=== PATIENT | male | born 2000 | race Hispanic/Latino ===

== ENCOUNTER 2025-02-25 12:07 | Emergency (ER) | payer OTHER, SELFPAY ==
[2025-02-25] VITALS (23 sets, daily range): BP systolic 102–140; BP diastolic 71–97; PULSE 71–102; RESP 14–29; TEMP 36.4; O2SAT 90–100
--- NOTE | ~2025-02-25 | XR_ITS ---
HISTORY: RT SHOULDER PAIN AFTER JUMPING IN POOL COMPARISON: None TECHNIQUE: 2 views of the right shoulder were performed FINDINGS: Medial and inferior dislocation of the humeral head in relation to the glenoid fossa consistent with an anterior shoulder dislocation. The visualized portion of the adjacent right lung is clear. IMPRESSION: Anterior shoulder dislocation, as detailed above. Reviewed, dictated and finalized at location A.
--- NOTE | ~2025-02-25 | XR_ITS ---
HISTORY: shoulder relocation COMPARISON: Previous examination performed less than one hour earlier TECHNIQUE: 2 views of the right shoulder were performed FINDINGS: No acute fracture. The glenohumeral and acromioclavicular joint space is maintained The visualized portion of the adjacent right lung is clear. The humeral head is now well seated within the glenoid fossa. IMPRESSION: Adequate alignment post reduction, as detailed above. Reviewed, dictated and finalized at location A.
[2025-02-25] MEDS: HYDROmorphone HCL INJ (*CRX) 2 MG/ML VIAL 1 MG IV PUSH ×2 (12:26→12:46)
--- NOTE | 2025-02-25 13:45 | ED.GENADULT ---
HPI - General Adult General Chief complaint: Extremity Injury, Upper Stated complaint: R shoulder injury Time Seen by Provider: 02/25/25 12:29 History of Present Illness HPI narrative: 24-year-old male presents emergency department for evaluation for a right shoulder dislocation. Patient does have a prior history of a right shoulder dislocation. Patient states he last did this approximately 2 years ago. Patient was jumping into a pool and dislocated his shoulder today just prior to arrival. Patient denies striking his head denies loss conscious. Patient denies any neck or back pain. Patient denies any numbness or weakness of the right hand but does have pain on the right shoulder. Related Data Allergies Allergy/AdvReac Type Severity Reaction Status Date / Time No Known Allergies Allergy Verified 02/25/25 12:13 Review of Systems Review of Systems: All systems reviewed & are unremarkable except as noted in HPI and below Exam Narrative: APPEARANCE: Well appearing, no pain, no distress, well-nourished. HEAD: normocephalic, atraumatic. EYES: PERRLA/EOMI, conjunctivae clear. NOSE: Normal no drainage EARS:TMS clear with good light reflex. THROAT: Pharynx clear, no exudate. NECK: Supple. No adenopathy, no masses. RESPIRATORY: Airway patent, respirations nonlabored. Clear to auscultation bilaterally, no rales, rhonchi, wheezing. CARDIOVASCULAR: Regular rate and rhythm without murmurs rubs or gallops. ABDOMINAL: Soft, nontender, nondistended, normal bowel sounds MUSCULOSKELETAL: Right shoulder dislocation, neurovascularly intact NEURO: Alert. Cranial nerves II through XII intact. Good gait. Good coordination SKIN: Warm, dry. Normal Color Course Vital Signs Vital signs: Vital Signs Temperature 97.6 F 02/25/25 12:11 Pulse Rate 87 02/25/25 12:11 Respiratory Rate 20 02/25/25 12:11 Blood Pressure 131/72 02/25/25 12:11 Pulse Oximetry 100 02/25/25 12:11 Oxygen Delivery Room Air 02/25/25 12:11 Temperature 97.6 F 02/25/25 12:11 Pulse Rate 88 02/25/25 14:31 Respiratory Rate 14 02/25/25 14:31 Blood Pressure 124/74 02/25/25 14:31 Pulse Oximetry 100 02/25/25 14:31 Oxygen Delivery Room Air 02/25/25 12:11 Procedures Orthopedic Joint Reduction Joint #1: Orthopedic Joint Reduction Time: 14:07 Time Out Performed: Yes Side: right Joint Reduction Location: shoulder Analgesia: procedural sedation Pre-Procedure Neuro Vascular Exam: normal Shoulder Technique Used (if applicable): traction/counter-traction and external rotation Post-reduction neuro exam: intact Post-reduction vascular: intact Post Reduction X-Ray Obtained: Yes Post Reduction X-Ray Results: reduced Splint Applied: Yes Patient Tolerated Procedure: well and no complications Procedural Sedation Procedural Sedation #1: Presedation Evaluation: APPEARANCE: Well appearing, no pain, no distress, well-nourished. HEAD: normocephalic, atraumatic. EYES: PERRLA/EOMI, conjunctivae clear. NOSE: Normal no drainage EARS:TMS clear with good light reflex. THROAT: Pharynx clear, no exudate. NECK: Supple. No adenopathy, no masses. RESPIRATORY: Airway patent, respirations nonlabored. Clear to auscultation bilaterally, no rales, rhonchi, wheezing. CARDIOVASCULAR: Regular rate and rhythm without murmurs rubs or gallops. ABDOMINAL: Soft, nontender, nondistended, normal bowel sounds MUSCULOSKELETAL: Right shoulder pain, shoulder deformity NEURO: Alert. Cranial nerves II through XII intact. Good gait. Good coordination SKIN: Warm, dry. Normal Color Procedure: Reduction of right shoulder Time Out: Time-out was performed Informed Consent Obtained: yes Equipment in Room: bag and mask, capnography, groundwater monitoring technician, crash cart, oxygen, pulse oximeter and suction Plan for Sedation: moderate sedation ASA Class: I Mallampati Classification: class I NPO Status: last solid food (hours ago) Explanation to Patient/Family: Risk/Benefits/Alternatives and Pt/Family agreed with plan Pt. Educated on Procedural Sedation: Yes Re-evaluated immediately prior: Yes Preparation: groundwater monitoring technician applied, pulse oximeter, capnometry used, supplemental O2 applied, suction/airway equipment at bedside and IV secured IV Propofol dose (mg): 100 Patient Tolerated Procedure: well and no complications Complications: none Interventions: oxygen applied Total Sedation Time (min): 10 Medical Decision Making MDM Narrative Medical decision making narrative: 24-year-old male presents emergency department for evaluation for right shoulder pain. X-ray does confirm a right shoulder dislocation with no fracture. Patient was sedated using propofol or shoulder was reduced without complication. Patient was placed in a shoulder immobilizer. Patient was comfortable plan for discharge and close follow-up. Differential Diagnosis Differential Diagnosis: Shoulder fracture, shoulder dislocation Vital Signs Vital Signs: Vital Signs Temperature 97.6 F 02/25/25 12:11 Pulse Rate 87 02/25/25 12:11 Respiratory Rate 20 02/25/25 12:11 Blood Pressure 131/72 02/25/25 12:11 Pulse Oximetry 100 02/25/25 12:11 Oxygen Delivery Room Air 02/25/25 12:11 Temperature 97.6 F 02/25/25 12:11 Pulse Rate 88 02/25/25 14:31 Respiratory Rate 14 02/25/25 14:31 Blood Pressure 124/74 02/25/25 14:31 Pulse Oximetry 100 02/25/25 14:31 Oxygen Delivery Room Air 02/25/25 12:11 Imaging Data Radiologist's impression: Impressions Shoulder X-Ray 02/25/25 13:36 IMPRESSION: Anterior shoulder dislocation, as detailed above. Shoulder X-Ray 02/25/25 14:16 IMPRESSION: Adequate alignment post reduction, as detailed above. Discharge Plan Discharge Clinical Impression: Anterior shoulder dislocation Patient Disposition: Home Condition: Improved Instructions: Antibiotic Form, Shoulder Dislocation (ED), Procedural Sedation (ED), Shoulder Immobilizer (ED) Additional Instructions: Shoulder immobilizer as directed for at least the next 1-2 weeks. Have close follow-up with Orthopedics. If you have any worsening symptoms then please call or return to the emergency department. Patient Language: Yoruba Follow-up/Referrals: PHYSICIAN NOT ON STAFF,NONSTAFF [Primary Care Provider] -
--- NOTE | 2025-02-25 13:49 | PC.NURSE ---
Suction set up, ambu bag in place and on 02 tank, C02 nasal cannula in place, shoulder immobilizer in room and consent signed.
--- NOTE | 2025-02-25 13:53 | PC.NURSE ---
MD Lennon in room 13:52 Time out started: 13:53 60mg Propofol given via IV 13:53 MD Lennon manipulating right shoulder 40mg Propofol given via IV 13:55
[2025-02-25] MEDS: SODIUM CHLORIDE 0.9% IV 1,000 ML 999 ML (14:10)
--- NOTE | 2025-02-25 15:08 | PC.NURSE ---
Right shoulder immobilizer placed on patient. Patient educated on shoulder immobilizer and to call ortho.
== END 2025-02-25 15:10 | disposition home or self-care (01) ==
PROVIDERS: Emergency Provider Emergency Medicine
DX: M24.411 Recurrent dislocation, right shoulder (principal)
CPT/HCPCS: 23650; 73030; 96374; 99285; J1171; J7030